=== PATIENT | male | born 1990 | race Caucasian/White ===

== ENCOUNTER 2018-08-04 10:09 | Emergency (ER) | payer MEDICAID ==
[~2018-08-04] VITALS: Ht 160 cm; Wt 63.5 kg
[2018-08-04 10:13] VITALS: BP 135/93
--- NOTE | 2018-08-04 10:20 | NUR ---
BIB SELF. PATIENT PRESENTS TO ED WITH RIGHT BOTTON ORAL PAIN. PT STATES TWO BOTTOM TEETH TAKEN OUT YESTERDAY AT [facility]ENTIST AND WAS UNABLE TO FILL PRESCRIPTIONS (ABX AND PAIN MEDS) DUE TO ISSUES WITH HIS INSURANCE. PATIENT STATED HE HAS BEEN UNABLE TO SLEEP BECAUSE OF THE PAIN. DENIES N/V/D; SKIN IS PINK/WARM/DRY; AAOX4 WITH EVEN AND STEADY GAIT; LUNGS CLEAR BL; HR EVEN AND REGULAR; PT DENIES ANY FEVER, CP, SOB, OR COUGH AT THIS TIME; PATIENT STATES PAIN OF 8/10 AT THIS TIME; VSS; PATIENT POSITIONED FOR COMFORT; HOB ELEVATED; BEDRAILS UP X2; BED DOWN. ER MD MADE AWARE OF PT STATUS.
[2018-08-04] MEDS ORDERED: KETOROLAC 60 MG/2 ML VIAL IM ONE (11:00)
[2018-08-04] MEDS ORDERED: CLINDAMYCIN 600 MG/4 ML VIAL IM ONE (11:00)
[2018-08-04] MEDS ORDERED: MORPHINE SULFATE 2 MG/ML SYR IM ONE (11:00)
[2018-08-04 11:29] VITALS: BP 135/93
--- NOTE | 2018-08-04 11:29 | NUR ---
Patient discharged with v/s stable. Written and verbal after care instructions given and explained. Patient alert, oriented and verbalized understanding of instructions. Ambulatory with steady gait. All questions addressed prior to discharge. ID band removed. Patient advised to follow up with PMD. Rx of FIOTICET AND CLINDAMYCIN given. Patient educated on indication of medication including possible reaction and side effects. Opportunity to ask questions provided and answered.
== END 2018-08-04 11:29 | disposition home or self-care (01) ==
LOC: MED 10:09
DX: K08.409 Partial loss of teeth, unspecified cause, unspecified class (principal); G89.18 Other acute postprocedural pain
CPT/HCPCS: 96372; 99284; J1885; J2270; J3490